=== PATIENT | male | born 1990 | race Caucasian/White ===

== ENCOUNTER 2016-06-27 23:42 | Emergency (ER) | payer SELFPAY ==
[2016-06-27] MEDS ORDERED: Lidocaine 1% w/Epinephrine 1:100K 20 ML VIAL ONE (23:51)
[2016-06-28] MEDS ORDERED: Triple Antibiotic Oint 1 GM Packet ONE (00:06)
== END 2016-06-28 00:12 | disposition home or self-care (01) ==
LOC: NAV ERS 23:42
DX: S01.01XA Laceration without foreign body of scalp, initial encounter (principal); S51.012A Laceration without foreign body of left elbow, initial encounter; W01.0XXA Fall on same level from slipping, tripping and stumbling without subsequent striking against object, initial encounter
CPT/HCPCS: 12002; J2001

== ENCOUNTER 2017-01-24 14:47 | Emergency (ER) | payer SELFPAY | END 2017-01-24 15:15 | disposition home or self-care (01) | LOC: NAV ERS 14:47 | DX: M54.10 Radiculopathy, site unspecified (principal); Z79.82 Long term (current) use of aspirin | CPT/HCPCS: 99283 ==

== ENCOUNTER 2017-10-31 11:10 | Emergency (ER) | payer SELFPAY ==
--- NOTE | 2017-10-31 13:47 | RAD ---
PA AND LATERAL CHEST XRAY: DATE: 10/31/17. HISTORY: Dyspnea. COMPARISON: None available. FINDINGS: Lateral view is rotated and obtained in a shallow depth of inspiration. However, the lungs do appear clear. The cardiac silhouette is at the upper limits of normal to borderline enlarged. The pulmona ry vasculature is within normal limits. The lungs are clear. Osseous structures appear intact. IMPRESSION: 1. No acute cardiopulmonary process. 2. Upper limits of normal to borderline cardiomegaly. POS: [facility]
== END 2017-10-31 12:35 | disposition home or self-care (01) ==
LOC: NAV ERS 11:10
DX: R06.02 Shortness of breath (principal); F17.210 Nicotine dependence, cigarettes, uncomplicated
CPT/HCPCS: 71046; 93005

== ENCOUNTER 2017-12-05 16:35 | Emergency (ER) | payer SELFPAY ==
[2017-12-05 17:28] LABS: #Basophils 0.1 thou/uL (0.0-0.2); #Eosinphils 0.1 thou/uL (0.0-0.7); #Monocytes 0.8 thou/uL (0.11-0.59); #Neutrophils 5.6 thou/uL (1.40-6.50); %Basophils 1.2 % (0.0-1.0); %Eosinophils 1.2 % (0.0-10.0); %Lymphocytes 31.4 % (21.0-51.0); %Monocytes 8.4 % (0.0-10.0); %Neutrophils 57.9 % (42.0-75.0); Hemoglobin 14.3 g/dL (14.0-18.0); Mean Corpuscular HGB CONC 32.9 g/dL (32.0-36.0); Mean Corpuscular Hemoglobin 28.4 pg (27.0-31.0); Mean Corpuscular Volume 86.6 fL (78.0-98.0); Mean Platelet Volume 10.7 fL (7.4-10.4); Platelet Count 242 thou/uL (130-400); RBC Distribution Width 11.3 % (11.5-14.5); Red Blood Cell (RBC) Count 5.01 mill/uL (4.70-6.10); White Blood Cell (WBC) Count 9.7 thou/uL (4.8-10.8)
[2017-12-05 17:44] LABS: ALT (SGPT) 39 U/L (8-55); AST (SGOT) 27 U/L (5-34); Albumin 4.7 g/dL (3.5-5.0); Alkaline Phosphatase 66 U/L (40-150); Anion Gap 14 mmol/L (10-20); BUN (Urea Nitrogen) 17 mg/dL (8.9-20.6); Bilirubin, Total 0.7 mg/dL (0.2-1.2); Calc. Creatinine Clearance 0 mL/min (70-130); Calcium 9.9 mg/dL (7.8-10.44); Carbon Dioxide 23 mmol/L (22-29); Chloride 103 mmol/L (98-107); Estimated GFR-MDRD Greater than 90; Globulin 3.4 g/dL (2.4-3.5); Glucose 106 mg/dL (70-105); Potassium 3.5 mmol/L (3.5-5.1); Protein, Total 8.1 g/dL (6.0-8.3); Sodium 136 mmol/L (136-145)
--- NOTE | 2017-12-05 18:25 | RAD ---
CHEST TWO VIEWS: History: Dyspnea. Comparison: 10-31-17 FINDINGS: Cardiac silhouette and pulmonary vasculature are unremarkable. Mediastinum is midline. An oval 2.1 cm nodular density projects over the right lateral lung base on the frontal view, favored to be just an terior of the diaphragm apex on the lateral view. It was not evident on the previous exam. IMPRESSION: Right lung base nodular density. Please consider short term radiographic follow up or CT chest to ulises luate for a lung nodule. POS: [facility]
== END 2017-12-05 18:40 | disposition home or self-care (01) ==
LOC: NAV ERS 16:35
DX: E86.0 Dehydration (principal); I95.1 Orthostatic hypotension; F17.210 Nicotine dependence, cigarettes, uncomplicated; F41.9 Anxiety disorder, unspecified
CPT/HCPCS: 71046; 80053; 85025; 93005; 94760

== ENCOUNTER 2018-02-21 11:56 | Emergency (ER) | payer SELFPAY ==
[2018-02-21 13:00] LABS: #Basophils 0.1 thou/uL (0.0-0.2); #Eosinphils 0.1 thou/uL (0.0-0.7); #Lymphocytes 2.5 thou/uL (1.20-3.40); #Monocytes 0.7 thou/uL (0.11-0.59); #Neutrophils 4.3 thou/uL (1.40-6.50); %Basophils 0.9 % (0.0-1.0); %Eosinophils 1.9 % (0.0-10.0); %Lymphocytes 32.5 % (21.0-51.0); %Monocytes 9.3 % (0.0-10.0); %Neutrophils 55.3 % (42.0-75.0); Mean Corpuscular HGB CONC 33.1 g/dL (32.0-36.0); Mean Corpuscular Hemoglobin 28.5 pg (27.0-31.0); Mean Corpuscular Volume 86.2 fL (78.0-98.0); Mean Platelet Volume 11.1 fL (7.4-10.4); Platelet Count 209 thou/uL (130-400); RBC Distribution Width 11.6 % (11.5-14.5); Red Blood Cell (RBC) Count 5.25 mill/uL (4.70-6.10); White Blood Cell (WBC) Count 7.7 thou/uL (4.8-10.8)
[2018-02-21 13:12] LABS: Anion Gap 15 mmol/L (10-20); BUN (Urea Nitrogen) 17 mg/dL (8.9-20.6); Calc. Creatinine Clearance 0 mL/min (70-130); Calcium 9.8 mg/dL (7.8-10.44); Carbon Dioxide 21 mmol/L (22-29); Chloride 105 mmol/L (98-107); Estimated GFR-MDRD Greater than 90; Glucose 91 mg/dL (70-105); Potassium 4.1 mmol/L (3.5-5.1); Sodium 137 mmol/L (136-145)
== END 2018-02-21 13:31 | disposition home or self-care (01) ==
LOC: NAV ERS 11:56
DX: R07.9 Chest pain, unspecified (principal); R00.2 Palpitations; F17.210 Nicotine dependence, cigarettes, uncomplicated; F41.9 Anxiety disorder, unspecified
CPT/HCPCS: 80048; 84484; 85025; 93005

== ENCOUNTER 2024-10-25 13:20 | Emergency (ER) | payer SELFPAY | END 2024-10-25 14:20 | disposition home or self-care (01) | LOC: NAV ERS 13:20 | DX: M72.2 Plantar fascial fibromatosis (principal); F22 Delusional disorders | CPT/HCPCS: 99283 ==